=== PATIENT | male | born 1955 | race Caucasian/White ===

== ENCOUNTER 2017-09-29 13:02 | Outpatient (CLI) | payer OTHER ==
[2017-09-29 13:16] LABS: BASOPHILS % 0.7 (0.0-1.5); EOSINOPHILS % 1.1 % (0.0-6.8); MEAN CORPUSCULAR VOLUME 96.5 fl (80.0-100.0); MONOCYTES % 4.9 % (0.0-11.0); NEUTROPHILS # 4.3 # k/uL (1.4-7.7)
[2017-09-29 13:37] LABS: eGFR (African) > 60; eGFR (Non-African) > 60
== END 2017-09-29 13:03 ==
LOC: LAB 13:02
PROVIDERS: ATTEND General Practice
DX: Z02.89 Encounter for other administrative examinations (principal)
CPT/HCPCS: 80053; 82248; 85025